=== PATIENT | female | born 1930 | race Caucasian/White ===

== ENCOUNTER 2018-03-28 13:03 | Inpatient (IN) | payer MEDICARE, BC ==
[~2018-03-28] VITALS: Ht 152.4 cm; Wt 83.9 kg
[2018-03-28] VITALS (8 sets, daily range): BP systolic 135–163; BP diastolic 71–91
[~2018-03-28 13:03] MED LIST: ACET-812 PO; AMIO200T4 PO; CARV-49 PO; DABI150C PO; FURO40TA4 PO; MELA3TAB PO; POTA10CA44 PO
--- NOTE | 2018-03-28 13:15 | NUR ---
DR THAKKAR INFORMED OF PT RECENT HX, S/S AND STATUS
[2018-03-28] MEDS ORDERED: tranexamic acid 100mg/ml inj. IV ONE (13:20)
[2018-03-28] MEDS ORDERED: normal saline 1000ML IV soln IVB ONE (13:20)
[2018-03-28] MEDS ORDERED: pantoprazole 40MG/NS 100ML BAG 100 ML IV ONE (13:20)
[2018-03-28 13:42] LABS: BASOPHILS % (AUTO) 0.3 % (0-1); EOSINOPHILS # (AUTO) 0.2 X10'3 (0-0.9); EOSINOPHILS % (AUTO) 3.2 % (0-6); HEMATOCRIT 23.2 % (35.0-45.0); HEMOGLOBIN 7.2 g/dl (12.0-16.0); LYMPHOCYTES # (AUTO) 1.1 X10'3 (1.1-4.8); LYMPHOCYTES % (AUTO) 14.2 % (21-51); MEAN CORPUSCULAR HEMOGLOBIN 22.8 PG (27.0-31.0); MEAN CORPUSCULAR HGB CONC 31.2 % (33.0-36.5); MEAN CORPUSCULAR VOLUME 73.2 FL (78-98); MEAN PLATELET VOLUME 8.2 FL (7.4-10.4); MONOCYTES # (AUTO) 0.8 X10'3 (0-0.9); MONOCYTES % (AUTO) 10.4 % (2-12); NEUTROPHILS # (AUTO) 5.4 X10'3 (1.8-7.7); NEUTROPHILS % (AUTO) 71.9 % (42-75); PLATELET COUNT 229 X10'3 (140-440); RED BLOOD COUNT 3.17 X10'6 (4.20-5.60); RED CELL DISTRIBUTION WIDTH 17.3 % (11.5-14.5); WHITE BLOOD COUNT 7.5 X10'3 (4.5-11.0)
[2018-03-28 13:56] LABS: CLARITY,URINE SLIGHTLY CLOUDY (Clear); COLOR,URINE YELLOW (Yellow); GLUCOSE, URINE NEGATIVE (Neg); KETONES,URINE NEGATIVE (Neg); LEUKOCYTE ESTERASE ,URINE NEGATIVE (Neg); NITRITES, URINE NEGATIVE (Neg); OCCULT BLOOD,URINE NEGATIVE (Neg); PROTEIN,URINE 30 mg/dl (Neg)
[2018-03-28 13:57] LABS: INR 1.3 INR; PARTIAL THROMBOPLASTIN TIME 41 SECONDS (22-32); PROTHROMBIN TIME 13.4 SECONDS (9.0-12.0)
[2018-03-28 13:59] LABS: UA COLLECTION TYPE CLN CATCH MIDSTREAM
[2018-03-28 14:01] LABS: ALANINE AMINOTRANSFERASE 29 U/L (12-78); ALBUMIN 3.2 G/DL (3.4-5.0); ALBUMIN/GLOBULIN RATIO 0.8 (1.1-1.5); ALKALINE PHOSPHATASE 86 IU/L (46-116); ANION GAP 11 (8-16); ASPARTATE AMINO TRANSFERASE 43 U/L (10-37); BILIRUBIN,TOTAL 0.9 MG/DL (0.1-1.0); BLOOD UREA NITROGEN 29 MG/DL (7-18); BUN/CREATININE RATIO 25.9 (6.6-38.0); CALCIUM 8.6 MG/DL (8.5-10.1); CHLORIDE 103 MMOL/L (99-107); CREATININE 1.12 MG/DL (0.40-0.90); GLUCOSE 110 MG/DL (70-104); SODIUM 140 MMOL/L (135-145); TOTAL CARBON DIOXIDE 25.6 MMOL/L (24-32); TOTAL PROTEIN 7.3 G/DL (6.4-8.2); eGFR 46 ML/MIN
[2018-03-28 14:09] LABS: MUCUS STRANDS FEW /LPF (Neg); SQUAMOUS EPITHELIAL CELL,UR MANY /LPF (FEW)
[2018-03-28 14:10] LABS: BACTERIA,URINE FEW /HPF (Neg); RBC,URINE 0-2 /HPF (0-2); WBC,URINE 0-4 /HPF (0-4)
[2018-03-28] MEDS ORDERED: pantoprazole 40 MG vial IV ONE ×2 (15:05→15:15)
[2018-03-28] MEDS ORDERED: tranexamic acid inj. 1,000 MG in normal saline 100ml IV soln 100 ML IV ONE (15:10)
[2018-03-28] MEDS ORDERED: potassium Cl 20 mEq SR tablet PO PRN ×2 (15:15)
[2018-03-28] MEDS ORDERED: mag hydrox/Alum hydrox/simeth 30ml oral suspension PO PRN (15:15)
[2018-03-28] MEDS ORDERED: magnesium 4gm in 100ml NS 100 ML IV PRN (15:15)
[2018-03-28] MEDS ORDERED: acetaminophen 325mg tablet PO PRN ×2 (15:15)
[2018-03-28] MEDS ORDERED: magnesium Cl slow-release 64mg tablet PO PRN (15:15)
[2018-03-28] MEDS ORDERED: ondansetron/PF 4mg/2ml inj IV PRN (15:15)
[2018-03-28] MEDS ORDERED: magnesium 2GM in 50ml NS 50 ML IV PRN (15:15)
[2018-03-28] MEDS ORDERED: magnesium hydroxide 30ml (MOM) UD suspension PO PRN (15:15)
[2018-03-28] MEDS ORDERED: potassium Cl 40MEQ/NS 500ml 500 ML IV PRN ×2 (15:15)
[2018-03-28] MEDS ORDERED: LANS30CA56 PO (15:21)
[2018-03-28] MEDS ORDERED: LISI-600 PO (15:21)
[2018-03-28 16:21] LABS: OCCULT BLOOD STOOL POSITIVE (Neg)
[2018-03-28] MEDS: normal saline 1000ml 1,000 ML IV SCH ×2 (18:36→19:35)
--- NOTE | 2018-03-28 18:40 | NUR ---
Upper GI tomorrow at 0830, Report given to Alpa GOETZ.
--- NOTE | 2018-03-28 19:00 | NUR ---
protonix gtt placed on hold while lab is obtaining specimens
[2018-03-28] MEDS: carvedilol 6.25mg tablet PO SCH (20:06)
--- NOTE | 2018-03-28 20:08 | NUR ---
Hospital bed requested for patient.
--- NOTE | 2018-03-28 20:41 | NUR ---
I contacted Dr. Armstrong to clarify the amount of blood to be transfused for this patient. There are currently 2 ordered by EDMD and 1 ordered by hospitalist. I explained the patients situation and Dr. Armstrong states to give 1 additional unit for a total of 2 units transfused and then redaw a hematocrit and to contact him if it is less than 26.
--- NOTE | 2018-03-28 21:55 | NUR ---
Patient in room [facility] 358. I have received report from SOFY Gan and had the opportunity to ask questions and assume patient care when patient arrives to unit
--- NOTE | 2018-03-28 22:05 | NUR ---
Patient arrived to unit via gurney and was able to ambulate to the bathroom when she arrived with 2 person assist. Patient is alert and oriented, VSS
[2018-03-29] VITALS (8 sets, daily range): BP systolic 117–159; BP diastolic 66–93
[2018-03-29 01:36] LABS: ALBUMIN 2.9 G/DL (3.4-5.0); ANION GAP 11 (8-16); BLOOD UREA NITROGEN 21 MG/DL (7-18); BUN/CREATININE RATIO 22.8 (6.6-38.0); CHLORIDE 107 MMOL/L (99-107); CREATININE 0.92 MG/DL (0.40-0.90); GLUCOSE 107 MG/DL (70-104); MAGNESIUM 2.1 MG/DL (1.5-2.4); POTASSIUM 3.8 MMOL/L (3.5-5.1); SODIUM 142 MMOL/L (135-145); TOTAL CARBON DIOXIDE 24.1 MMOL/L (24-32); eGFR 58 ML/MIN
[2018-03-29 01:43] LABS: INR 1.2 INR; PARTIAL THROMBOPLASTIN TIME 37 SECONDS (22-32); PROTHROMBIN TIME 12.5 SECONDS (9.0-12.0)
[2018-03-29 01:47] LABS: HEMATOCRIT 27.3 % (35.0-45.0); HEMOGLOBIN 8.6 g/dl (12.0-16.0); MEAN CORPUSCULAR HEMOGLOBIN 24.1 PG (27.0-31.0); MEAN CORPUSCULAR HGB CONC 31.6 % (33.0-36.5); MEAN CORPUSCULAR VOLUME 76.4 FL (78-98); MEAN PLATELET VOLUME 8.2 FL (7.4-10.4); PLATELET COUNT 169 X10'3 (140-440); RED BLOOD COUNT 3.57 X10'6 (4.20-5.60); RED CELL DISTRIBUTION WIDTH 16.1 % (11.5-14.5); WHITE BLOOD COUNT 6.6 X10'3 (4.5-11.0)
[2018-03-29] MEDS: normal saline 1000ml 1,000 ML IV SCH (05:16)
--- NOTE | 2018-03-29 06:07 | NUR ---
Problems reprioritized. Patient report given, questions answered & plan of care reviewed with SOFY Bueno.
--- NOTE | 2018-03-29 06:24 | NUR ---
Patient in room [facility] 358. I have received report from SOFY Camara and had the opportunity to ask questions and assume patient care.
[2018-03-29] MEDS ORDERED: fentaNYL/PF 50MCG/1 ML 2ML syringe ONE (07:53)
[2018-03-29] MEDS ORDERED: MIDAZolam 5mg/5ml vial ONE (07:53)
[2018-03-29] MEDS ORDERED: LIDOcaine Viscous 15ml cup ONE (07:53)
[2018-03-29] MEDS: K and/or MAG REPLACEMENT MC SCH (08:00)
[2018-03-29] MEDS ORDERED: furosemide 40mg tablet PO SCH (08:00)
--- NOTE | 2018-03-29 09:51 | NUR ---
Pt returned to room from GI lab A&O x4 stable. will monitor for rebleeding.
[2018-03-29] MEDS: carvedilol 6.25mg tablet PO SCH ×2 (13:08→20:24)
[2018-03-29] MEDS: furosemide 40mg/4ml inj IV SCH (13:08)
[2018-03-29] MEDS: amiodarone 200mg tablet PO SCH (13:10)
--- NOTE | 2018-03-29 18:30 | NUR ---
Patient in room [facility] 358. I have received report from SOFY Bueno and had the opportunity to ask questions and assume patient care.
--- NOTE | 2018-03-29 18:35 | NUR ---
Problems reprioritized. Patient report given, questions answered & plan of care reviewed with SOFY Camara.
[2018-03-29] MEDS: temazepam 15mg capsule PO PRN (23:25)
[2018-03-30] VITALS: BP 115/67
[2018-03-30 06:11] LABS: ALBUMIN 2.9 G/DL (3.4-5.0); ANION GAP 10 (8-16); BLOOD UREA NITROGEN 15 MG/DL (7-18); BUN/CREATININE RATIO 16.9 (6.6-38.0); CALCIUM 8.3 MG/DL (8.5-10.1); CHLORIDE 106 MMOL/L (99-107); CREATININE 0.89 MG/DL (0.40-0.90); GLUCOSE 90 MG/DL (70-104); MAGNESIUM 2.1 MG/DL (1.5-2.4); POTASSIUM 3.6 MMOL/L (3.5-5.1); SODIUM 142 MMOL/L (135-145); TOTAL CARBON DIOXIDE 26.2 MMOL/L (24-32); eGFR 60 ML/MIN
--- NOTE | 2018-03-30 06:12 | NUR ---
Problems reprioritized. Patient report given, questions answered & plan of care reviewed with SOFY Laird.
[2018-03-30 06:21] LABS: HEMATOCRIT 26.8 % (35.0-45.0); HEMOGLOBIN 8.5 g/dl (12.0-16.0); MEAN CORPUSCULAR HEMOGLOBIN 25.1 PG (27.0-31.0); MEAN CORPUSCULAR HGB CONC 31.8 % (33.0-36.5); MEAN CORPUSCULAR VOLUME 78.9 FL (78-98); MEAN PLATELET VOLUME 8.6 FL (7.4-10.4); PLATELET COUNT 142 X10'3 (140-440); RED BLOOD COUNT 3.39 X10'6 (4.20-5.60); RED CELL DISTRIBUTION WIDTH 16.3 % (11.5-14.5)
[2018-03-30 06:22] LABS: INR 1.2 INR; PARTIAL THROMBOPLASTIN TIME 30 SECONDS (22-32)
[2018-03-30] MEDS: carvedilol 6.25mg tablet PO SCH ×2 (07:50→20:18)
[2018-03-30] MEDS: furosemide 40mg/4ml inj IV SCH (07:50)
[2018-03-30] MEDS: K and/or MAG REPLACEMENT MC SCH (07:50)
[2018-03-30] MEDS: amiodarone 200mg tablet PO SCH (07:50)
[2018-03-30 12:16] VITALS: BP 115/76
--- NOTE | 2018-03-30 18:30 | NUR ---
Patient in room [facility] 358. I have received report from Janelle GOETZ and had the opportunity to ask questions and assume patient care.
[2018-03-30 19:00] VITALS: BP 133/61
[2018-03-30] MEDS: temazepam 15mg capsule PO PRN (20:22)
[2018-03-31] VITALS: BP 159/63
[2018-03-31] MEDS: temazepam 15mg capsule PO PRN (01:28)
--- NOTE | 2018-03-31 06:30 | NUR ---
Patient in room [facility] 358. I have received report from Yonatan GOETZ and had the opportunity to ask questions and assume patient care.
--- NOTE | 2018-03-31 06:30 | NUR ---
Problems reprioritized. Patient report given, questions answered & plan of care reviewed with Diamond GOETZ. Ptup with amrike, returning to bed from bathroom
[2018-03-31 06:38] LABS: HEMATOCRIT 26.1 % (35.0-45.0); HEMOGLOBIN 8.2 g/dl (12.0-16.0); MEAN CORPUSCULAR HEMOGLOBIN 24.6 PG (27.0-31.0); MEAN CORPUSCULAR HGB CONC 31.3 % (33.0-36.5); MEAN CORPUSCULAR VOLUME 78.7 FL (78-98); MEAN PLATELET VOLUME 8.6 FL (7.4-10.4); PLATELET COUNT 148 X10'3 (140-440); RED BLOOD COUNT 3.31 X10'6 (4.20-5.60); RED CELL DISTRIBUTION WIDTH 16.7 % (11.5-14.5); WHITE BLOOD COUNT 5.8 X10'3 (4.5-11.0)
[2018-03-31 07:00] LABS: ALBUMIN 2.9 G/DL (3.4-5.0); ANION GAP 8 (8-16); BLOOD UREA NITROGEN 14 MG/DL (7-18); BUN/CREATININE RATIO 16.5 (6.6-38.0); CALCIUM 8.5 MG/DL (8.5-10.1); CHLORIDE 105 MMOL/L (99-107); CREATININE 0.85 MG/DL (0.40-0.90); GLUCOSE 92 MG/DL (70-104); MAGNESIUM 1.9 MG/DL (1.5-2.4); POTASSIUM 3.5 MMOL/L (3.5-5.1); SODIUM 140 MMOL/L (135-145); TOTAL CARBON DIOXIDE 26.6 MMOL/L (24-32); eGFR 63 ML/MIN
[2018-03-31 07:08] LABS: INR 1.2 INR; PARTIAL THROMBOPLASTIN TIME 28 SECONDS (22-32); PROTHROMBIN TIME 11.9 SECONDS (9.0-12.0)
[2018-03-31 07:30] VITALS: BP 127/73
[2018-03-31] MEDS ORDERED: dabigatran 150mg capsule PO SCH (08:00)
[2018-03-31] MEDS: K and/or MAG REPLACEMENT MC SCH (08:00)
[2018-03-31] MEDS: amiodarone 200mg tablet PO SCH (08:27)
[2018-03-31] MEDS: furosemide 40mg/4ml inj IV SCH (08:27)
[2018-03-31] MEDS: carvedilol 6.25mg tablet PO SCH (08:27)
[2018-03-31 11:00] VITALS: BP 128/64
--- NOTE | 2018-03-31 11:51 | NUR ---
Pradaxa not given patient admitted for GI bleed. notified
--- NOTE | 2018-03-31 14:54 | NUR ---
Called Elma CORRALES at [facility] and gave report.
--- NOTE | 2018-03-31 15:40 | NUR ---
Patient discharged to [facility] all belongings sent, iv and tele removed. Patient accompanied by neel arenas.
== END 2018-03-31 15:38 | DRG 377 ==
LOC: ER 13:03 → ED HOLD 15:14 → SUR 3N 22:13
PROVIDERS: ADMIT Family Medicine; ATTEND Family Medicine
PROC: 30233N1 Transfusion of Nonautologous Red Blood Cells into Peripheral Vein, Percutaneous Approach (ICD-10-PCS; 2018-03-28)
PROC: 0DB68ZZ Excision of Stomach, Via Natural or Artificial Opening Endoscopic (ICD-10-PCS; principal; 2018-03-29)
DX: K29.01 Acute gastritis with bleeding (principal); I50.33 Acute on chronic diastolic (congestive) heart failure; I13.0 Hypertensive heart and chronic kidney disease with heart failure and stage 1 through stage 4 chronic kidney disease, or unspecified chronic kidney disease; N17.9 Acute kidney failure, unspecified; K31.7 Polyp of stomach and duodenum; K29.41 Chronic atrophic gastritis with bleeding; D50.0 Iron deficiency anemia secondary to blood loss (chronic); I48.2 Chronic atrial fibrillation; G47.33 Obstructive sleep apnea (adult) (pediatric); I25.10 Atherosclerotic heart disease of native coronary artery without angina pectoris; K21.9 Gastro-esophageal reflux disease without esophagitis; K44.9 Diaphragmatic hernia without obstruction or gangrene; N18.9 Chronic kidney disease, unspecified; Z60.2 Problems related to living alone; Z66 Do not resuscitate; Z95.0 Presence of cardiac pacemaker; Z90.49 Acquired absence of other specified parts of digestive tract; Z79.899 Other long term (current) drug therapy; Z79.01 Long term (current) use of anticoagulants; Z85.038 Personal history of other malignant neoplasm of large intestine
CPT/HCPCS: 36415; 43239; 43251; 71045; 80048; 80053; 81001; 82272; 83735; 84439; 84443; 84484; 85025; 85027; 85610; 85730; 86885; 86900; 86901; 86920; 87070; 88305; 88313; 88342; 93005; 93306; 96361; 96365; 97116; 97162; 97530; 99152; 99285; A4620; C9113; G0378; J1940; J2250; J3010; J7030; P9016

== ENCOUNTER 2018-08-04 01:02 | Observation (INO) | payer MEDICARE, BC ==
[~2018-08-04] VITALS: Ht 154.9 cm; Wt 77.3 kg
[2018-08-04] VITALS (14 sets, daily range): BP systolic 99–155; BP diastolic 60–91
[~2018-08-04 01:02] MED LIST changes: +LANS30CA56 PO; +LISI-600 PO
[2018-08-04 01:35] LABS: BASOPHILS % (AUTO) 0.4 % (0-1); EOSINOPHILS # (AUTO) 0.2 X10'3 (0-0.9); EOSINOPHILS % (AUTO) 2.4 % (0-6); HEMATOCRIT 34.8 % (35.0-45.0); HEMOGLOBIN 11.5 g/dl (12.0-16.0); LYMPHOCYTES # (AUTO) 1.1 X10'3 (1.1-4.8); LYMPHOCYTES % (AUTO) 14.7 % (21-51); MEAN CORPUSCULAR HEMOGLOBIN 29.2 PG (27.0-31.0); MEAN CORPUSCULAR VOLUME 88.6 FL (78-98); MONOCYTES # (AUTO) 0.8 X10'3 (0-0.9); NEUTROPHILS # (AUTO) 5.3 X10'3 (1.8-7.7); NEUTROPHILS % (AUTO) 71.5 % (42-75); PLATELET COUNT 111 X10'3 (140-440); RED BLOOD COUNT 3.93 X10'6 (4.20-5.60); RED CELL DISTRIBUTION WIDTH 21.3 % (11.5-14.5); WHITE BLOOD COUNT 7.5 X10'3 (4.5-11.0)
[2018-08-04 01:50] LABS: ALANINE AMINOTRANSFERASE 36 U/L (12-78); ALBUMIN/GLOBULIN RATIO 0.8 (1.1-1.5); ALKALINE PHOSPHATASE 124 IU/L (46-116); ANION GAP 6 (8-16); ASPARTATE AMINO TRANSFERASE 52 U/L (10-37); BILIRUBIN,TOTAL 0.5 MG/DL (0.1-1.0); BLOOD UREA NITROGEN 24 MG/DL (7-18); BUN/CREATININE RATIO 21.1 (6.6-38.0); CALCIUM 8.7 MG/DL (8.5-10.1); CHLORIDE 107 MMOL/L (99-107); CREATININE 1.14 MG/DL (0.40-0.90); GLUCOSE 114 MG/DL (70-104); POTASSIUM 3.7 MMOL/L (3.5-5.1); SODIUM 142 MMOL/L (135-145); TOTAL CARBON DIOXIDE 29.5 MMOL/L (24-32); eGFR 45 ML/MIN
[2018-08-04 01:51] LABS: INR 1.1 INR; PARTIAL THROMBOPLASTIN TIME 28 SECONDS (22-32)
[2018-08-04] MEDS ORDERED: FERR-29 (02:46)
[2018-08-04 02:55] LABS: ANISOCYTOSIS 3+; ELLIPTOCYTES FEW; PLATELET ESTIMATE DECREASED
[2018-08-04] MEDS: nitroGLYCERIN 0.4mg SUBLingual tab SL PRN ×2 (03:10→03:32)
--- NOTE | 2018-08-04 03:16 | NUR ---
DR ALVES AT BEDSIDE FOR ADMISSION. PT GIVEN NITRO TAB FOR CP 3-4 OUT OF 10. CURRENT VSS. PT ASSISTED UP TO BSC, 1 PERSON ASSIST. FALL BAND AND DNR BAND PLACED. PT A&OX4 AND REPORTS SHE IS DNR. NEXT TROP DUE 0416.
[2018-08-04] MEDS ORDERED: ondansetron/PF 4mg/2ml inj IV PRN (03:20)
[2018-08-04] MEDS ORDERED: mag hydrox/Alum hydrox/simeth 30ml oral suspension PO PRN (03:20)
[2018-08-04] MEDS ORDERED: HYDROcodone/acetaminophen 5mg/325mg tablet PO PRN (03:20)
[2018-08-04] MEDS ORDERED: acetaminophen 325mg tablet PO PRN ×2 (03:20)
[2018-08-04] MEDS ORDERED: magnesium hydroxide 30ml (MOM) UD suspension PO PRN (03:20)
[2018-08-04] MEDS ORDERED: non-formulary drug (Acetaminophen (Tylenol Extra Strength) 1 TABLET) PO PRN (03:25)
[2018-08-04 04:45] LABS: CHOL/HDL RATIO 3.1 (0.00-4.99); CHOLESTEROL 125 MG/DL (0-200); HDL CHOLESTEROL 40 MG/DL (35-60); LDL CHOLESTEROL 73 MG/DL (50-100); TRIGLYCERIDES 74 MG/DL (20-135)
--- NOTE | 2018-08-04 05:00 | NUR ---
Received report from Denisse GOETZ, Pt transferred from ED to Ortho floor via [place]. Pt is alert and oriented x4 Pt denies Chest pain.
--- NOTE | 2018-08-04 06:10 | NUR ---
Patient in room ORTHO 4011. I have received report from Chandrakant López RN and had the opportunity to ask questions and assume patient care.
--- NOTE | 2018-08-04 07:50 | NUR ---
Pt NPO for possible Lexiscan
[2018-08-04] MEDS: carvedilol 6.25mg tablet PO SCH ×2 (08:00→20:47)
[2018-08-04] MEDS: amiodarone 200mg tablet PO SCH (08:00)
[2018-08-04] MEDS: furosemide 40mg tablet PO SCH ×2 (08:00→20:47)
[2018-08-04] MEDS: dabigatran 150mg capsule PO SCH ×2 (08:00→20:47)
[2018-08-04] MEDS: nitroGLYCERIN 0.4mg/hour patch TD SCH (08:00)
[2018-08-04] MEDS: lisinopril 10 MG tablet PO SCH (08:00)
[2018-08-04] MEDS: ferrous sulfate 325mg tablet PO SCH (12:48)
[2018-08-04] MEDS: potassium chloride 8mEq ER tablet PO SCH (12:48)
[2018-08-04] MEDS: pantoprazole 40mg Tablet.DR PO SCH (12:48)
[2018-08-04] MEDS: aspirin 81mg tablet.DR PO SCH (12:48)
--- NOTE | 2018-08-04 13:20 | NUR ---
PAGER ID: [phone] MESSAGE: Dr. Yusuf, RE Ms. Moscoso in [id number], are we able to have an order for Ativan for the lexiscan? Please advise, thank you Keyana #[phone] or [phone]
[2018-08-04] MEDS ORDERED: LORazepam 2 mg/ml vial IV ONE (13:25)
--- NOTE | 2018-08-04 14:00 | NUR ---
Pt transported to [facility] for lexiscan
[2018-08-04] MEDS ORDERED: aminophylline 250mg/10ml inj. IV ONE (14:20)
[2018-08-04] MEDS ORDERED: regadenoson 0.4mg/5ml syringe IV ONE ×2 (14:20→14:25)
[2018-08-04] MEDS ORDERED: aminophylline inj. 10 ML IV ONE (14:25)
--- NOTE | 2018-08-04 15:55 | NUR ---
Pt returning from [facility], made comfortable in bed, pt sleeping
--- NOTE | 2018-08-04 18:15 | NUR ---
Problems reprioritized. Patient report given, questions answered & plan of care reviewed with Manisha GOETZ.
--- NOTE | 2018-08-04 18:27 | NUR ---
Patient in room ORTHO 4011. I have received report from Keyana GOETZ and had the opportunity to ask questions and assume patient care.
[2018-08-04] MEDS ORDERED: Melatonin 3mg tablet PO SCH (21:00)
[2018-08-05 06:30] VITALS: BP 131/73
[2018-08-05 06:31] LABS: BASOPHILS % (AUTO) 0.5 % (0-1); EOSINOPHILS # (AUTO) 0.1 X10'3 (0-0.9); EOSINOPHILS % (AUTO) 1.3 % (0-6); HEMATOCRIT 34.3 % (35.0-45.0); HEMOGLOBIN 11.6 g/dl (12.0-16.0); LYMPHOCYTES # (AUTO) 1.3 X10'3 (1.1-4.8); LYMPHOCYTES % (AUTO) 18.2 % (21-51); MEAN CORPUSCULAR HEMOGLOBIN 29.9 PG (27.0-31.0); MEAN CORPUSCULAR HGB CONC 33.6 g/dL (33.0-36.5); MEAN CORPUSCULAR VOLUME 88.9 FL (78-98); MEAN PLATELET VOLUME 8.9 FL (7.4-10.4); MONOCYTES # (AUTO) 1.1 X10'3 (0-0.9); MONOCYTES % (AUTO) 15.4 % (2-12); NEUTROPHILS # (AUTO) 4.6 X10'3 (1.8-7.7); NEUTROPHILS % (AUTO) 64.6 % (42-75); PLATELET COUNT 95 X10'3 (140-440); RED BLOOD COUNT 3.86 X10'6 (4.20-5.60); RED CELL DISTRIBUTION WIDTH 20.4 % (11.5-14.5)
--- NOTE | 2018-08-05 06:33 | NUR ---
Problems reprioritized. Patient report given, questions answered & plan of care reviewed with Sheryl GOETZ.
[2018-08-05 06:35] LABS: ALBUMIN 2.7 G/DL (3.4-5.0); ANION GAP 5 (8-16); BLOOD UREA NITROGEN 19 MG/DL (7-18); BUN/CREATININE RATIO 22.9 (6.6-38.0); CALCIUM 8.9 MG/DL (8.5-10.1); CHLORIDE 107 MMOL/L (99-107); CREATININE 0.83 MG/DL (0.40-0.90); GLUCOSE 101 MG/DL (70-104); POTASSIUM 3.6 MMOL/L (3.5-5.1); SODIUM 140 MMOL/L (135-145); TOTAL CARBON DIOXIDE 27.8 MMOL/L (24-32); eGFR 65 ML/MIN
--- NOTE | 2018-08-05 06:44 | NUR ---
Patient in room ORTHO 4011. I have received report from Manisha GOETZ and had the opportunity to ask questions and assume patient care.
[2018-08-05 07:45] LABS: ACANTHOCYTES FEW; ANISOCYTOSIS 3+; ELLIPTOCYTES FEW; PLATELET ESTIMATE DECREASED; POLYCHROMASIA FEW; SCHISTOCYTES FEW; TEAR DROP CELLS FEW
[2018-08-05] MEDS: pantoprazole 40mg Tablet.DR PO SCH (08:03)
[2018-08-05] MEDS: aspirin 81mg tablet.DR PO SCH (08:04)
[2018-08-05] MEDS: ferrous sulfate 325mg tablet PO SCH (08:04)
[2018-08-05] MEDS: amiodarone 200mg tablet PO SCH (08:04)
[2018-08-05] MEDS: potassium chloride 8mEq ER tablet PO SCH (08:04)
[2018-08-05] MEDS: lisinopril 10 MG tablet PO SCH (08:04)
[2018-08-05] MEDS: carvedilol 6.25mg tablet PO SCH (08:04)
[2018-08-05] MEDS: furosemide 40mg tablet PO SCH (08:04)
[2018-08-05] MEDS: nitroGLYCERIN 0.4mg/hour patch TD SCH (08:05)
[2018-08-05] MEDS: dabigatran 150mg capsule PO SCH (09:18)
[2018-08-05 10:00] VITALS: BP 115/59
--- NOTE | 2018-08-05 11:30 | NUR ---
Patient was discharged at this time not new medications, she was taken out in wheel chair a friend of hers picked her up. She was told to follow up with Dr. aFrris.
== END 2018-08-05 11:40 | disposition home or self-care (01) ==
LOC: ER 01:02 → ORTHO 4S 04:52 → CMPBEDREQ 15:55
PROVIDERS: ADMIT Hospitalist; ATTEND Internal Medicine
DX: R07.9 Chest pain, unspecified (principal); I25.119 Atherosclerotic heart disease of native coronary artery with unspecified angina pectoris; I48.91 Unspecified atrial fibrillation; G47.33 Obstructive sleep apnea (adult) (pediatric); I10 Essential (primary) hypertension; K21.9 Gastro-esophageal reflux disease without esophagitis; Z90.49 Acquired absence of other specified parts of digestive tract; Z95.0 Presence of cardiac pacemaker
CPT/HCPCS: 36415; 71045; 78452; 80048; 80053; 80061; 84484; 85025; 85610; 85730; 87070; 93005; 93017; 96374; 96375; 99284; A9500; G0378; J0280; J2060